=== PATIENT | male | born 1950 | race Hispanic/Latino ===

== ENCOUNTER → 2019-01-07 | Day surgery (SDC) | payer OTHER ==
[2019-01-04 15:43] LABS: BASOPHILS % 0.3 % (0.0-1.0); EOSINOPHILS # (AUTO) 0.1 (0.0-0.4); EOSINOPHILS % 1.9 % (0.0-6.0); HEMATOCRIT 33.5 % (38.2-49.6); HEMOGLOBIN 11.2 g/dL (14.0-18.0); LYMPHOCYTES # (AUTO) 1.8 (1.0-3.2); LYMPHOCYTES % 27.2 % (18.0-39.1); MEAN CORPUSCULAR HEMOGLOBIN 27.9 pg (28-32); MEAN CORPUSCULAR HGB CONC 33.4 g/dL (31-35); MEAN CORPUSCULAR VOLUME 83.3 fL (81-99); MONOCYTES # (AUTO) 0.7 (0.2-0.8); MONOCYTES % 9.8 % (4.4-11.3); NEUTROPHILS % 59.8 % (38.7-80.0); PLATELET COUNT 237 x10e3/uL (140-360); RED BLOOD COUNT 4.02 x10e6/uL (4.3-5.7); RED CELL DISTRIBUTION WIDTH 14.6 % (11.7-14.4)
[2019-01-04 15:59] LABS: ALBUMIN 3.9 g/dL (3.5-5.0); ALBUMIN/GLOBULIN RATIO 1.3 (0.8-2.0); CALCIUM 9.6 mg/dL (8.4-10.2); CREATININE, SERUM 1.3 mg/dL (0.72-1.25)
[2019-01-07] VITALS (11 sets, daily range): BP systolic 125–159; BP diastolic 61–77
[~2019-01-07] VITALS: Ht 165.1 cm; Wt 87.1 kg
[~2019-01-07] MED LIST: ASPIRIN 325 MG TAB ONE; ASPIRIN81 MG PO; BIVALRIUDIN 250 MG/VIAL VIAL IV ONE; BORAGE; FENTANYL CITRATE/PF 100MCG/2 ML INJ ONE; FINASTERIDE5 MG PO; FISH FLAX; GARLIC1000 MG PO; HEPARIN SOD/SOD CHLORIDE 2,000 ML ONE; IOPAMIDOL 370 MG/ML 200 ML INFUS..BTL INJ ONE; LIDOCAINE HCL 2% LOCAL 20 ML VIAL ONE; LISINOPRIL-HCT1 EAC2 PO; MIDAZOLAM HCL 2 MG/2 ML VIAL ONE; PRASUGREL 10 MG TAB ONE; SODIUM CHLORIDE 0.9% 1000ML 1,000 ML ONE; SODIUM CHLORIDE 0.9% 50ML 50 ML ONE; VITAMIN D32000 UNI1 PO; magnesium PO
--- NOTE | 2019-01-07 17:31 | Operative Report ---
DATE OF PROCEDURE: 01/07/2019 SURGEON: Leno Winters MD INDICATION: Coronary artery disease, abnormal stress test. PROCEDURES PERFORMED: 1. Left heart catheterization, selective coronary angiography. 2. PTCA and stent placement to the right coronary artery. 3. Deployment of right wrist TR band. COMPLICATIONS: None. RECOMMENDATIONS: Medical therapy. DESCRIPTION OF PROCEDURE: Access obtained in the right radial artery. A 5-[place] sheath was placed. Coronary angiography demonstrated patent left main, mid left anterior descending artery, 50% diagonal artery, 50% stenosis. Circumflex was small vessel. Right coronary artery was dominant vessel with mild disease in the proximal portion. Proximal right posterior descending artery 80% stenosis. LV end-diastolic pressure of 10. No gradient across the aortic valve pullback. A decision was made to intervene on the right coronary artery. The patient received intravenous Angiomax and oral Effient and aspirin for anticoagulation. The right coronary artery was cannulated using a JR4 6-[place] guiding catheter. A short run-through wire was advanced for support. Primary stent 2.25 x 12 mm Synergy stent was deployed at 18 atmospheres with excellent end result, less than 10% residual stenosis, KOBY-3 flow. No complications. Right wrist TR band applied. The patient discharged home same day. Leno Winters MD [facility] /[id number]
== END | disposition home or self-care (01) ==
LOC: CATH LAB 11:05
PROVIDERS: ATTEND Internal Medicine Interventional Cardiology
DX: I25.118 Atherosclerotic heart disease of native coronary artery with other forms of angina pectoris (principal); R94.39 Abnormal result of other cardiovascular function study; Z01.812 Encounter for preprocedural laboratory examination; Z79.82 Long term (current) use of aspirin; Z68.32 Body mass index [BMI] 32.0-32.9, adult
CPT/HCPCS: 36415; 80053; 85025; 92928; 93458; 99152; 99153; C1769; C1874; C1887; J0583; J2001; J2250; J3010; J7030; Q9967

== ENCOUNTER → 2020-02-01 | Day surgery (SDC) | payer OTHER ==
[2020-01-27 12:22] LABS: BASOPHILS % 0.6 % (0.0-1.0); EOSINOPHILS # (AUTO) 0.2 (0.0-0.4); EOSINOPHILS % 2.8 % (0.0-6.0); HEMATOCRIT 32.5 % (38.2-49.6); HEMOGLOBIN 9.9 g/dL (14.0-18.0); LYMPHOCYTES # (AUTO) 1.3 (1.0-3.2); LYMPHOCYTES % 23.8 % (18.0-39.1); MEAN CORPUSCULAR HEMOGLOBIN 24.9 pg (28-32); MEAN CORPUSCULAR HGB CONC 30.5 g/dL (31-35); MEAN CORPUSCULAR VOLUME 81.7 fL (81-99); MONOCYTES # (AUTO) 0.6 (0.2-0.8); MONOCYTES % 11.2 % (4.4-11.3); NEUTROPHILS # (AUTO) 3.3 (2.1-6.9); PLATELET COUNT 284 x10e3/uL (140-360); RED BLOOD COUNT 3.98 x10e6/uL (4.3-5.7)
[2020-01-27 12:45] LABS: ALANINE AMINOTRANSFERASE 27 IU/L (0-55); ALBUMIN 3.9 g/dL (3.5-5.0); ALBUMIN/GLOBULIN RATIO 1.3 (0.8-2.0); ALKALINE PHOSPHATASE 69 IU/L (40-150); ANION GAP 10.4 mmol/L (8-16); BLOOD UREA NITROGEN 21 mg/dL (7-26); BUN/CREATININE RATIO 19 (6-25); CALCIUM 8.9 mg/dL (8.4-10.2); CARBON DIOXIDE 27 mmol/L (22-29); CHLORIDE 107 mmol/L (98-107); EST GLOMERULAR FILTRATION RATE > 60 ML/MIN (60-); GLUCOSE 76 mg/dL (74-118); POTASSIUM 4.4 mmol/L (3.5-5.1); SODIUM 140 mmol/L (136-145)
[2020-02-01] VITALS (13 sets, daily range): BP systolic 105–144; BP diastolic 48–77
[~2020-02-01] VITALS: Ht 165.1 cm; Wt 88.5 kg
[~2020-02-01] MED LIST changes: +ALPRAZOLAM 0.5 MG TAB ONE; +ATORVASTATIN CA20 MG PO; -BORAGE; +BORAGE PO; +CLOPIDOGREL75 MG PO; +DIPHENHYDRAMINE HCL 25 MG CAP ONE; -FISH FLAX; +FISH FLAX PO; +HEPARIN SOD (PORCINE) 1000 UNIT/ML 30ML ONE; +MONTELUKAST SOD10 MG PO; +NITROGLYCERIN/D5W 200 MCG/ML 250 ML ONE; +VERAPAMIL HCL 2.5 MG/ML 2 ML VIAL ONE
== END | disposition home or self-care (01) ==
LOC: CATH LAB 11:04
PROVIDERS: ATTEND Internal Medicine Interventional Cardiology
DX: I25.118 Atherosclerotic heart disease of native coronary artery with other forms of angina pectoris (principal); R94.39 Abnormal result of other cardiovascular function study; F17.210 Nicotine dependence, cigarettes, uncomplicated; Z79.02 Long term (current) use of antithrombotics/antiplatelets; Z79.82 Long term (current) use of aspirin; Z68.32 Body mass index [BMI] 32.0-32.9, adult; Z86.2 Personal history of diseases of the blood and blood-forming organs and certain disorders involving the immune mechanism; Z82.49 Family history of ischemic heart disease and other diseases of the circulatory system
CPT/HCPCS: 36415; 76937; 80053; 85025; 92928; 93458; C1725; C1769; C1874; C1887 ×2; C1894; J0583; J1644; J2001; J2250; J3010; J7030; Q9967; 99152; 99153

== ENCOUNTER → 2020-05-31 | Day surgery (SDC) | payer MEDICARE ==
[2020-05-31] VITALS (12 sets, daily range): BP systolic 119–150; BP diastolic 33–89
[~2020-05-31] MED LIST changes: +CETIRIZINE HCL10 MG PO; +FLUTICASONE P15.8 ML; -NITROGLYCERIN/D5W 200 MCG/ML 250 ML ONE; -PRASUGREL 10 MG TAB ONE; +TICAGRELOR 90 MG TABLET ONE
== END | disposition home or self-care (01) ==
LOC: CATH LAB 12:00
PROVIDERS: ATTEND Internal Medicine Interventional Cardiology
DX: I25.119 Atherosclerotic heart disease of native coronary artery with unspecified angina pectoris (principal); Z20.822 Contact with and (suspected) exposure to COVID-19; Z79.02 Long term (current) use of antithrombotics/antiplatelets; Z79.82 Long term (current) use of aspirin; Z68.33 Body mass index [BMI] 33.0-33.9, adult; Z86.2 Personal history of diseases of the blood and blood-forming organs and certain disorders involving the immune mechanism; Z82.49 Family history of ischemic heart disease and other diseases of the circulatory system
CPT/HCPCS: 76937; C1725; C1874; C9600; J0583; J1644; J2001; J2250; J3010; J7030; Q9967; U0002; 92928; 99152; 99153

== ENCOUNTER → 2020-09-25 | Day surgery (SDC) | payer MEDICARE ==
[~2020-09-25] VITALS: Ht 165.1 cm; Wt 88.5 kg
[~2020-09-25] MED LIST changes: -ALPRAZOLAM 0.5 MG TAB ONE; -ASPIRIN 325 MG TAB ONE; -BIVALRIUDIN 250 MG/VIAL VIAL IV ONE; -DIPHENHYDRAMINE HCL 25 MG CAP ONE; -FENTANYL CITRATE/PF 100MCG/2 ML INJ ONE; -HEPARIN SOD (PORCINE) 1000 UNIT/ML 30ML ONE; -HEPARIN SOD/SOD CHLORIDE 2,000 ML ONE; -IOPAMIDOL 370 MG/ML 200 ML INFUS..BTL INJ ONE; +LOSARTAN POTASS25 MG PO; -MIDAZOLAM HCL 2 MG/2 ML VIAL ONE; -SODIUM CHLORIDE 0.9% 1000ML 1,000 ML ONE; -SODIUM CHLORIDE 0.9% 50ML 50 ML ONE; -TICAGRELOR 90 MG TABLET ONE; -VERAPAMIL HCL 2.5 MG/ML 2 ML VIAL ONE
[2020-09-25 09:52] VITALS: BP 124/66
[2020-09-25 12:30] VITALS: BP 110/56
[2020-09-25 12:45] VITALS: BP 119/66
[2020-09-25 12:55] VITALS: BP 116/62
== END | disposition home or self-care (01) ==
LOC: CATH LAB 09:44
PROVIDERS: ATTEND Internal Medicine Interventional Cardiology
DX: R00.1 Bradycardia, unspecified (principal); Z01.812 Encounter for preprocedural laboratory examination; Z20.822 Contact with and (suspected) exposure to COVID-19; Z79.82 Long term (current) use of aspirin; Z79.02 Long term (current) use of antithrombotics/antiplatelets; Z86.2 Personal history of diseases of the blood and blood-forming organs and certain disorders involving the immune mechanism
CPT/HCPCS: 33285; C1764; J2001; U0002